=== PATIENT | male | born 1950 | race Caucasian/White ===

== ENCOUNTER 2021-04-21 21:47 | Inpatient (IN) | payer OTHER ==
[~2021-04-21] VITALS: Ht 180.3 cm; Wt 87.6 kg
[2021-04-21 23:12] LABS: BASOPHIL 0.2 % (0-2); EOSINOPHIL 1.3 % (0-7); HCT 36.6 % (42.0-52.0); LYMPHOCYTE 13.5 % (15-48); MCH 31.2 pg (25.0-31.0); MCHC 35.5 g/dL (32.0-36.0); MCV 87.8 fL (78.0-100.0); MONOCYTE 7.3 % (0-12); MPV 9.3 fL (6.0-9.5); NRBC 0; PLT 124 K/uL (150-400); RBC 4.17 M/uL (4.70-6.00); RDW 12.1 % (11.5-14.0); WBC 5.2 K/uL (4.0-10.5)
[2021-04-21 23:26] LABS: ALBUMIN 4.3 g/dL (3.4-5.0); BILIRUBIN - TOTAL 1.1 mg/dL (0.2-1.0); BUN/CREAT RATIO (CALC) 27.2 RATIO; CREATININE 0.81 mg/dL (0.67-1.17); POTASSIUM 3.8 mmol/L (3.5-5.1); TOTAL PROTEIN 7.3 g/dL (6.4-8.2); URIC ACID 4.3 mg/dL (3.5-7.2)
[2021-04-22 01:57] LABS: LACTIC ACID 2.5 mmol/L (0.4-1.9)
[2021-04-22 02:20] LABS: BILIRUBIN NEGATIVE (NEGATIVE); BLOOD TRACE-INTACT Ery/uL (NEGATIVE); CLARITY CLEAR (CLEAR); COLOR YELLOW (YELLOW); GLUCOSE (U) 2+ mg/dL (NORMAL); LEUKOCYTES NEGATIVE Leu/uL (NEGATIVE); NITRITE NEGATIVE (NEGATIVE); PROTEIN TRACE (LOW) mg/dL (NEGATIVE); SPECIFIC GRAVITY 1.025 (1.001-1.030); UROBILINOGEN 0.2 mg/dL (0.2-1.0); pH 5.5 (5.0-9.0)
[2021-04-22 02:24] LABS: AMPHETAMINES NEGATIVE (NEGATIVE); BARBITURATES NEGATIVE (NEGATIVE); ECSTASY (MDMA) NEGATIVE (NEGATIVE); MARIJUANA (THC) NEGATIVE (NEGATIVE); METHADONE NEGATIVE (NEGATIVE); OPIATES POSITIVE (NEGATIVE); OXYCODONE NEGATIVE (NEGATIVE)
[2021-04-22 02:26] LABS: BACTERIA TRACE; MUCOUS TRACE; TRANSITIONAL EPITHELIAL CELLS RARE
[2021-04-22 03:59] LABS: CORONAVIRUS 2019 SARS-COV-2 NEGATIVE (NEGATIVE); INFLUENZA A NAA NEGATIVE (NEGATIVE)
[2021-04-22] MEDS ORDERED: ACETAMINOPHEN325 MG PO (14:21)
[2021-04-22] MEDS ORDERED: LIPITOR40 MG PO (14:22)
[2021-04-22] MEDS ORDERED: NORVASC5 MG PO (14:22)
[2021-04-22] MEDS ORDERED: BICALUTAMIDE50 MG PO (14:23)
[2021-04-22] MEDS ORDERED: CELEBREX **OUT100 MG PO (14:24)
[2021-04-22] MEDS ORDERED: NEURONTIN300 M1 PO (14:27)
[2021-04-22] MEDS ORDERED: LISINOPRIL40 MG PO (14:29)
[2021-04-22] MEDS ORDERED: LOPRESSOR50 MG PO (14:30)
[2021-04-22] MEDS ORDERED: METFORMIN HCL500 MG PO (14:30)
[2021-04-22] MEDS ORDERED: PROTONIX 40MG T40 MG PO (14:31)
[2021-04-22] MEDS ORDERED: XARELTO10 MG PO (14:32)
[2021-04-22] MEDS ORDERED: LEVEMIR DO100 UNITS/ SC (14:37)
[2021-04-22] MEDS ORDERED: TRULICITY1.5 MG/0.5 SC (14:39)
--- NOTE | 2021-04-22 15:08 | NUR ---
04/22/21 Mr. Linn lives with his spouse and son. He does not use any DME and was independent in the home and community prior to admission.
[2021-04-23 16:51] LABS: HCT 33.3 % (42.0-52.0); HGB 11.5 g/dl (13.2-18.0); MCH 31.2 pg (25.0-31.0); MCHC 34.5 g/dL (32.0-36.0); MCV 90.2 fL (78.0-100.0); MPV 9.6 fL (6.0-9.5); RBC 3.69 M/uL (4.70-6.00); RDW 12.4 % (11.5-14.0)
[2021-04-23 16:52] LABS: WBC 16.4 K/uL (4.0-10.5)
--- NOTE | 2021-04-23 16:59 | NUR ---
NOTIFIED OF ELEVATED WBC
[2021-04-23 17:03] LABS: CREATININE 0.87 mg/dL (0.67-1.17)
[2021-04-23 17:04] LABS: POTASSIUM 3.6 mmol/L (3.5-5.1)
--- NOTE | 2021-04-23 20:57 | NUR ---
RN WAS TRYING TO RUN VANC 1250 MG 250 ML AT 250 ML/HR AND IV MACHAINE SAID I HAD TO OVERRIDE OVER 167 ML/HR AND WOULD ONLY GO UP TO 200 ML/HR. THE NURSE CALLED PHARMACY TO CONFIRM THE ML/HR AND THE PHARMASIST SAID IT WAS CORRECT AND COULD BE RAN OVER AN HOUR EVEN THOUGH OUR SYSTEM WOULDN'T ALLOW IT
--- NOTE | 2021-04-24 14:05 | NUR ---
PATIENT'S CAN TO DESK TO LET US KNOW THAT HE HAD NOT BEEN CLEANED UP SINCE SUNDAY ANE HE NEEDED TO BE. WENT TO THE ROOM, DAUGHTER AND PATIENT WERE IN THE ROOM, ASKED PATIENT IF HE WAS READY TO TAKE A SHOWER. HE STATED,"NO, I LIKE TO BE DIRTY." I THOUGHT HE WAS JOKING BUT HE STATED THAT HE WOULD THINK ABOUT IT FOR LATER BUT DID NOT WANT ONE. I INFORMED HIM THAT HIS HAD STATED THAT HE NEEDED TO GET CLEANED UP AND WHEN AND IF HE WAS READY TO LET US KNOW. I WAS INFORMED THAT EDWARD MONTERROSO ON NIGHT TRIED TO GET HIM TO GET A SHOWER LAST NIGHT AND HE REFUSED.
[2021-04-25 07:26] LABS: BASOPHIL 0.3 % (0-2); EOSINOPHIL 0.8 % (0-7); HCT 33.4 % (42.0-52.0); HGB 11.9 g/dl (13.2-18.0); LYMPHOCYTE 11.3 % (15-48); MCH 31.2 pg (25.0-31.0); MCHC 35.6 g/dL (32.0-36.0); MCV 87.4 fL (78.0-100.0); MONOCYTE 8.5 % (0-12); MPV 9.5 fL (6.0-9.5); NEUTROPHIL 76.4 % (41-80); NRBC 0; PLT 112 K/uL (150-400); RBC 3.82 M/uL (4.70-6.00); RDW 11.9 % (11.5-14.0); WBC 12.5 K/uL (4.0-10.5)
[2021-04-25 07:52] LABS: CREATININE 1.06 mg/dL (0.67-1.17); POTASSIUM 3.1 mmol/L (3.5-5.1)
[2021-04-26 06:11] LABS: BASOPHIL 0.2 % (0-2); EOSINOPHIL 2.5 % (0-7); HCT 33.5 % (42.0-52.0); HGB 11.9 g/dl (13.2-18.0); LYMPHOCYTE 14.5 % (15-48); MCH 31.2 pg (25.0-31.0); MCHC 35.5 g/dL (32.0-36.0); MCV 87.9 fL (78.0-100.0); MONOCYTE 13.9 % (0-12); MPV 9.5 fL (6.0-9.5); NRBC 0; PLT 132 K/uL (150-400); RBC 3.81 M/uL (4.70-6.00); RDW 12.2 % (11.5-14.0); WBC 5.1 K/uL (4.0-10.5)
[2021-04-26 06:52] LABS: CREATININE 1.46 mg/dL (0.67-1.17); POTASSIUM 3.3 mmol/L (3.5-5.1)
[2021-04-27 06:18] LABS: BASOPHIL 0.5 % (0-2); HCT 34.4 % (42.0-52.0); HGB 12.1 g/dl (13.2-18.0); LYMPHOCYTE 20.4 % (15-48); MCH 31.3 pg (25.0-31.0); MCHC 35.2 g/dL (32.0-36.0); MCV 88.9 fL (78.0-100.0); MONOCYTE 14.2 % (0-12); MPV 9.3 fL (6.0-9.5); NEUTROPHIL 55.7 % (41-80); NRBC 0; PLT 145 K/uL (150-400); RBC 3.87 M/uL (4.70-6.00); RDW 12.3 % (11.5-14.0)
[2021-04-27 07:00] LABS: CREATININE 1.51 mg/dL (0.67-1.17); POTASSIUM 3.3 mmol/L (3.5-5.1)
[2021-04-27 07:03] LABS: MAGNESIUM 1.9 mg/dL (1.8-2.4)
--- NOTE | 2021-04-27 12:45 | NUR ---
1230 MIDLINE ORDERED FOR PT FOR IV ANTIBIOTICS,PROCEDURE EXPLAINED TO PT. PT AGREED TP PROCEDURE. RISKS AND BENEFITS EXPLAINED ALSO. PT PREPPED AND DRAPED IN STERILE FASHION, THE PT'S LEFT UPPER ARM BASILIC VEIN WAS VIAUALIZED USING THE [employer] 6 US MACHINE. A 21 GAUGE GUIDE NEEDLE WAS USED. GOOD BLOOD RETURN WAS NOTED. THE GUIDE WIRE THREADED EASILY. THE NEEDLE WAS REMOVED AND THE MIDLINE CATHETER WAS PLACED OVER THE WIRE. THE WIRE AND SHEATH WERE REMOVED. GOOD BLOOD RETURN WAS NOTED. A CONNECTOR WAS FLUSHED AND PLACED ON THE END OF THE CATHETER. A STAT LOCK WAS PLACED ON THE CATHETER AND A BIOPATCH WAS PLACED ON TOP OF THE INSERTION SITE. A STERILE TEGADERM WAS PLACED OVER THE MIDLINE CATHETER. PT TOLERATED THE PROCEDURE WELL. PT HAS 20 G 10 CM POWERGLIDE MIDLINE CATHETER. GOOD FOR 29 DAYS. THIS IS NOT A CENTRAL LINE. REPORT WAS GIVEN TO GRACIE VINSON R.N. ON MED/SURG THE PATIENT'S BED WAS LOWERED TO THE GROUND AND THE CALL LIGHT IS WITHIN REACH OF THE PT, SIDE RAILS UP X 2.
--- NOTE | 2021-04-27 17:29 | NUR ---
MET WITH PT AND SPOUSE. PT IS A VETAERN. DR. RAWLS EXPLAINED TO PT. THAT HE WOULD HAVE CHANGE HIS IV ABX FROM VANC TO ZYVOX. IF HIS RENAL FUNCTION IMPROVED HE COULD HOME TOMORROW ON ORAL ZYVOX. IN DISCUSSING THE INFORMATION WITH THE PT. REGARDING HIS PRECRIPTION HE STATED THAT HE WOULD HAVE TO GO TO THE [facility] TO BANKING AND FINANCE INSTRUCTOR HIS PRESCRIPTION. TC TO [facility]. ADVISED THAT I WOULD HAVE TO SPEAK WITH GENERAL ACCOUNTANT. MIRZA VALENTIN. SPOKE WITH YUMIKO. SHE ADVISED THAT I WOULD HAVE TO GET AUTHORIZATION FROM PRIMARY CARE PHYSCIAN, DR. PÉREZ IN [facility]. I WOULD HAVE TO FAX CLINICAL INFORMATION TO [phone]. ONCE APPROVED PT. COULD BANKING AND FINANCE INSTRUCTOR THE MEDS AT THE PHARMACY. ADVISED DR. RAWLS AND HE INCLUDED IN PROGRESS NOTE WHY PT. WOULD NEED AN ABX OTHER THAN VANC. FAXED CLINICAL INFO TO DR. PÉREZ FOR AUTHORIZATION FOR MEDICATION.
[2021-04-28 05:51] LABS: BASOPHIL 0.4 % (0-2); EOSINOPHIL 1.7 % (0-7); HCT 32.3 % (42.0-52.0); HGB 11.5 g/dl (13.2-18.0); LYMPHOCYTE 20.4 % (15-48); MCH 31.6 pg (25.0-31.0); MCHC 35.6 g/dL (32.0-36.0); MCV 88.7 fL (78.0-100.0); MONOCYTE 8.7 % (0-12); MPV 9.2 fL (6.0-9.5); NEUTROPHIL 59.9 % (41-80); NRBC 0; PLT 145 K/uL (150-400); RBC 3.64 M/uL (4.70-6.00); RDW 12.1 % (11.5-14.0); WBC 4.8 K/uL (4.0-10.5)
[2021-04-28 06:37] LABS: CREATININE 1.48 mg/dL (0.67-1.17); POTASSIUM 3.8 mmol/L (3.5-5.1)
[2021-04-28 06:38] LABS: MAGNESIUM 1.7 mg/dL (1.8-2.4)
--- NOTE | 2021-04-28 14:44 | NUR ---
TC TO DR. PÉREZ OFFICE SPOKE WITH [employer]. SHE ADVISED THAT THE CONSULT HAS BEEN PUT IN FOR THE REFERRAL. SHE STATED THAT THE DRGagan WOULD NEED THE D/C SUMMARY BEFORE APPROVING THE MEDICATION AT THE [facility]. ADVISED DR. RAWLS THAT I WOULD NEED THE D/C SUMMARY TO SEND TO THE DOCTOR.
--- NOTE | 2021-04-28 14:52 | NUR ---
JOSEFINA FROM [facility] WITH OR. HE ADVISED THAT THE MEDICATION WOULD BE FILLED ONCE THE D/C SUMMARY IS RECEIVED. HE ALSO ADVISED THAT PT. HAS AN APPT. WITH HIS PRIMARY CARE PHYSICIAN AT [facility] FOR April @ 11:30 P.M. ADVISED RAGHAVENDRA HAWK.
[2021-04-28] MEDS ORDERED: ZYVOX600 MG PO (15:16)
--- NOTE | 2021-04-28 15:55 | NUR ---
JOSEFINA CALDERON THE OUTREACH STATISTICAL CLERK. SHE ADVISED THAT DR. PÉREZ HAD WRITTEN AN ORDER FOR THE PT. TO BE SEEN BY ON MONDAY, MAY 03, 2021. I ADVISED HER THAT DR. RAWLS WANTED HIM SEEN ON SUNDAY. YUMIKO TOLD ME THAT UNLESS DR. RAWLS WANTED TO SIGN THE ORDERS SHE WOULD HAVE TO GO WITH DR. PÉREZ'S ORDER. I ADVISED DR. RAWLS OF THIS INFORMATION. DR. RAWLS STATED THAT HE HAD DOCUMENTED IN HIS DC/ SUMMARY WHAT HE WANTED DONE.
== END 2021-04-28 18:27 | disposition home health service (06) | DRG 872 ==
LOC: FER 21:47 → FMS 04-22 04:37
PROVIDERS: Emergency Medicine; Internal Medicine; Nurse Practitioner; ADMIT Internal Medicine
PROC: 05HY33Z Insertion of Infusion Device into Upper Vein, Percutaneous Approach (ICD-10-PCS; principal; 2021-04-27)
DX: A41.9 Sepsis, unspecified organism (principal); L03.114 Cellulitis of left upper limb; N17.9 Acute kidney failure, unspecified; R65.20 Severe sepsis without septic shock; I10 Essential (primary) hypertension; Z20.822 Contact with and (suspected) exposure to COVID-19; E11.40 Type 2 diabetes mellitus with diabetic neuropathy, unspecified; T36.8X5A Adverse effect of other systemic antibiotics, initial encounter; K59.00 Constipation, unspecified; H40.9 Unspecified glaucoma; Z86.718 Personal history of other venous thrombosis and embolism; Z79.01 Long term (current) use of anticoagulants; Z85.46 Personal history of malignant neoplasm of prostate; Z95.820 Peripheral vascular angioplasty status with implants and grafts; Z90.79 Acquired absence of other genital organ(s); Z88.8 Allergy status to other drugs, medicaments and biological substances
CPT/HCPCS: 36415; 73201; 80048; 80053; 80202; 80305; 81001; 82962; 83036; 83605; 83735; 84145; 84550; 85025; 85379; 86140; 87040; 87070; 87075; 87077; 87186; 87205; C1751; G0378; J1642; J2020; J2270; J2405; J2543; J2550; J3370; J7030; J7050; J7120; Q9967; U0002

== ENCOUNTER 2021-11-18 12:41 | Emergency (ER) | payer MEDICARE ==
[~2021-11-18 12:41] MED LIST: ACETAMINOPHEN325 MG PO; BICALUTAMIDE50 MG PO; CELEBREX **OUT100 MG PO; LEVEMIR DO100 UNITS/ SC; LIPITOR40 MG PO; LISINOPRIL40 MG PO; LOPRESSOR50 MG PO; METFORMIN HCL500 MG PO; NEURONTIN300 M1 PO; NORVASC5 MG PO; PROTONIX 40MG T40 MG PO; TRULICITY1.5 MG/0.5 SC; XARELTO10 MG PO; ZYVOX600 MG PO
[2021-11-18] MEDS ORDERED: TESSALON PERLE100 MG PO (15:21)
[2021-11-18] MEDS ORDERED: VENTOLIN HFA IN18 GM INH (15:21)
== END 2021-11-18 15:35 | disposition home or self-care (01) ==
LOC: FER 12:41
DX: U07.1 COVID-19 (principal); I10 Essential (primary) hypertension; E11.9 Type 2 diabetes mellitus without complications; Z88.8 Allergy status to other drugs, medicaments and biological substances
CPT/HCPCS: 71045

== ENCOUNTER 2021-11-21 15:40 | Inpatient (IN) | payer MEDICARE ==
[~2021-11-21] VITALS: Ht 177.8 cm; Wt 75.8 kg
[~2021-11-21 15:40] MED LIST changes: +TESSALON PERLE100 MG PO; +VENTOLIN HFA IN18 GM INH
[2021-11-21 16:29] LABS: BASOPHIL 0.2 % (0-2); EOSINOPHIL 0 % (0-7); HCT 38.2 % (42.0-52.0); HGB 13.6 g/dl (13.2-18.0); LYMPHOCYTE 10.8 % (15-48); MCH 31.5 pg (25.0-31.0); MCHC 35.6 g/dL (32.0-36.0); MCV 88.4 fL (78.0-100.0); MONOCYTE 9.3 % (0-12); MPV 10.2 fL (6.0-9.5); NEUTROPHIL 75.6 % (41-80); NRBC 0; PLT 108 K/uL (150-400); RBC 4.32 M/uL (4.70-6.00); RDW 11.5 % (11.5-14.0); WBC 5.2 K/uL (4.0-10.5)
[2021-11-21 16:40] LABS: INR 1.13 (0.9-1.2); PROTHROMBIN TIME 13.9 SECONDS (11.8-13.4); PTT 27.3 SECONDS (24.4-34.7)
[2021-11-21 16:41] LABS: D-DIMER 0.44 ug/mLFEU (0.00-0.41)
[2021-11-21 16:57] LABS: LACTIC ACID 1.5 mmol/L (0.4-1.9)
[2021-11-21 17:08] LABS: BILIRUBIN - TOTAL 0.9 mg/dL (0.2-1.0); BUN/CREAT RATIO (CALC) 25.3 RATIO; C-REACTIVE PROTEIN 3.6 mg/dL (<=0.90); CREATININE 0.91 mg/dL (0.67-1.17); GLOBULIN (CALCULATION) 3.3 g/dL; MAGNESIUM 1.9 mg/dL (1.8-2.4); POTASSIUM 3.4 mmol/L (3.5-5.1); TOTAL PROTEIN 7.3 g/dL (6.4-8.2)
[2021-11-21 17:19] LABS: INFLUENZA A NAA NEGATIVE (NEGATIVE)
[2021-11-21 17:22] LABS: CORONAVIRUS 2019 SARS-COV-2 POSITIVE (NEGATIVE)
[2021-11-22 07:27] LABS: BASOPHIL 0.2 % (0-2); EOSINOPHIL 0 % (0-7); HCT 39.3 % (42.0-52.0); HGB 13.6 g/dl (13.2-18.0); LYMPHOCYTE 8.3 % (15-48); MCH 30.8 pg (25.0-31.0); MCHC 34.6 g/dL (32.0-36.0); MCV 89.1 fL (78.0-100.0); MONOCYTE 6.7 % (0-12); MPV 10.7 fL (6.0-9.5); NEUTROPHIL 81.5 % (41-80); NRBC 0; PLT 114 K/uL (150-400); RBC 4.41 M/uL (4.70-6.00); RDW 11.8 % (11.5-14.0)
[2021-11-22 07:35] LABS: WBC 12.3 K/uL (4.0-10.5)
[2021-11-22 07:56] LABS: ALBUMIN 3.7 g/dL (3.4-5.0); BILIRUBIN - DIRECT 0.2 mg/dL (0.00-0.20); BILIRUBIN - TOTAL 0.8 mg/dL (0.2-1.0); BUN/CREAT RATIO (CALC) 29.9 RATIO; CREATININE 0.87 mg/dL (0.67-1.17); GLOBULIN (CALCULATION) 3.4 g/dL; POTASSIUM 3.4 mmol/L (3.5-5.1); TOTAL PROTEIN 7.1 g/dL (6.4-8.2)
[2021-11-22 11:28] LABS: BILIRUBIN NEGATIVE (NEGATIVE); BLOOD 1+ Ery/uL (NEGATIVE); CLARITY CLEAR (CLEAR); COLOR YELLOW (YELLOW); GLUCOSE (U) 2+ mg/dL (NORMAL); LEUKOCYTES NEGATIVE Leu/uL (NEGATIVE); NITRITE NEGATIVE (NEGATIVE); PROTEIN 2+ mg/dL (NEGATIVE); SPECIFIC GRAVITY 1.025 (1.001-1.030); UROBILINOGEN 0.2 mg/dL (0.2-1.0)
[2021-11-22 11:45] LABS: BACTERIA TRACE; URINARY RBC RARE; URINARY WBC RARE
--- NOTE | 2021-11-23 04:50 | NUR ---
PT C/O COUGH, REQUESTING SUGAR FREE TUSSIN IS DMII & SUGARS HAVE BEEN VERY HIGH. DR. MARCELINO OK'D SF TUSSIN VIA VERBAL ORDER; HOWEVER, UNABLE TO FIND IN SYSTEM. IS THIS SOMETHING WE CAN OBTAIN IF PT STAYING ANY LONGER? PT MAY GO HOME TOMORROW BUT IF STAYS PLEASE CONSIDER OBTAIING OR ADVISE FAM TO HAVE IT BROUGHT IN TO SOOTH PT'S COUGH. THANK YOU.
== END 2021-11-23 16:54 | disposition home health service (06) | DRG 177 ==
LOC: FER 15:40 → FMS 20:16
PROVIDERS: Emergency Medicine; ADMIT Family Medicine
PROC: XW033E5 Introduction of Remdesivir Anti-infective into Peripheral Vein, Percutaneous Approach, New Technology Group 5 (ICD-10-PCS; principal; 2021-11-21)
PROC: 8E0ZXY6 Isolation (ICD-10-PCS; 2021-11-21)
DX: U07.1 COVID-19 (principal); J12.82 Pneumonia due to coronavirus disease 2019; E11.65 Type 2 diabetes mellitus with hyperglycemia; R09.02 Hypoxemia; I10 Essential (primary) hypertension; E11.319 Type 2 diabetes mellitus with unspecified diabetic retinopathy without macular edema; E78.5 Hyperlipidemia, unspecified; D69.6 Thrombocytopenia, unspecified; R74.01 Elevation of levels of liver transaminase levels; H40.9 Unspecified glaucoma; T38.0X5A Adverse effect of glucocorticoids and synthetic analogues, initial encounter; Z86.711 Personal history of pulmonary embolism; Z85.46 Personal history of malignant neoplasm of prostate; Z86.718 Personal history of other venous thrombosis and embolism; Z79.4 Long term (current) use of insulin; Z79.899 Other long term (current) drug therapy; Z85.828 Personal history of other malignant neoplasm of skin; Z88.8 Allergy status to other drugs, medicaments and biological substances
CPT/HCPCS: 36415; 36600; 71275; 80048; 80053; 80076; 81001; 82728; 82803; 83036; 83605; 83615; 83735; 83880; 84145; 84484; 85025; 85379; 85610; 85730; 86140; 87040; 87088; 93005; 94010; 97162; 97165; 97530-GP; 97535; C9399; J1100; J1815; J7030; J7050; J8540; Q9967; U0002

== ENCOUNTER 2021-12-22 10:13 | Emergency (ER) | payer MEDICARE ==
[2021-12-22 11:29] LABS: BASOPHIL 0.7 % (0-2); EOSINOPHIL 3.3 % (0-7); HCT 27.8 % (42.0-52.0); HGB 9.4 g/dl (13.2-18.0); LYMPHOCYTE 21.1 % (15-48); MCH 30.6 pg (25.0-31.0); MCHC 33.8 g/dL (32.0-36.0); MCV 90.6 fL (78.0-100.0); MONOCYTE 9.7 % (0-12); MPV 9.4 fL (6.0-9.5); NEUTROPHIL 61.2 % (41-80); NRBC 0; PLT 161 K/uL (150-400); RBC 3.07 M/uL (4.70-6.00); RDW 11.9 % (11.5-14.0); WBC 4.6 K/uL (4.0-10.5)
[2021-12-22 11:51] LABS: ALBUMIN 3.2 g/dL (3.4-5.0); BILIRUBIN - TOTAL 0.5 mg/dL (0.2-1.0); BUN/CREAT RATIO (CALC) 12.5 RATIO; CREATININE 1.6 mg/dL (0.67-1.17); POTASSIUM 3.3 mmol/L (3.5-5.1); TOTAL PROTEIN 6.2 g/dL (6.4-8.2)
[2021-12-22 17:38] LABS: RBC (FLUID) 11000 RBC/uL; WBC (FLUID) 137 WBC/uL
[2021-12-22 17:39] LABS: CLARITY (FLUID) CLOUDY; COLOR (FLUID) AMBER
[2021-12-23 09:09] LABS: BASOPHIL 0.5 % (0-2); EOSINOPHIL 3.6 % (0-7); HCT 30.1 % (42.0-52.0); HGB 10.4 g/dl (13.2-18.0); LYMPHOCYTE 18.4 % (15-48); MCH 30.5 pg (25.0-31.0); MCHC 34.6 g/dL (32.0-36.0); MCV 88.3 fL (78.0-100.0); MONOCYTE 10.2 % (0-12); NEUTROPHIL 63.5 % (41-80); NRBC 0; PLT 168 K/uL (150-400); RBC 3.41 M/uL (4.70-6.00); RDW 11.9 % (11.5-14.0); WBC 3.9 K/uL (4.0-10.5)
[2021-12-23 09:37] LABS: BUN/CREAT RATIO (CALC) 11.9 RATIO; CREATININE 1.51 mg/dL (0.67-1.17)
[2021-12-24 08:07] LABS: BASOPHIL 0.7 % (0-2); EOSINOPHIL 3.8 % (0-7); HGB 9.4 g/dl (13.2-18.0); LYMPHOCYTE 19.9 % (15-48); MCH 30.8 pg (25.0-31.0); MCHC 34.8 g/dL (32.0-36.0); MCV 88.5 fL (78.0-100.0); MONOCYTE 10.9 % (0-12); MPV 9.5 fL (6.0-9.5); NEUTROPHIL 62.8 % (41-80); NRBC 0; PLT 160 K/uL (150-400); RBC 3.05 M/uL (4.70-6.00); RDW 12.1 % (11.5-14.0); WBC 4.2 K/uL (4.0-10.5)
[2021-12-24 08:18] LABS: BUN/CREAT RATIO (CALC) 10.5 RATIO; CREATININE 1.52 mg/dL (0.67-1.17)
[2021-12-26 00:20] LABS: HCT 26.1 % (42.0-52.0); HGB 9.2 g/dl (13.2-18.0); MCH 31.1 pg (25.0-31.0); MCHC 35.2 g/dL (32.0-36.0); MCV 88.2 fL (78.0-100.0); MPV 9.3 fL (6.0-9.5); RBC 2.96 M/uL (4.70-6.00); WBC 4.5 K/uL (4.0-10.5)
[2021-12-26 00:42] LABS: BUN/CREAT RATIO (CALC) 8.5 RATIO; CREATININE 1.76 mg/dL (0.67-1.17); MAGNESIUM 1.1 mg/dL (1.8-2.4); PHOSPHORUS 3.3 mg/dL (2.6-4.7); POTASSIUM 3.2 mmol/L (3.5-5.1)
== END 2021-12-26 14:32 | disposition other institution (70) ==
LOC: FER 10:13
PROVIDERS: Emergency Medicine; Emergency Medicine Emergency Medical Services
DX: J90 Pleural effusion, not elsewhere classified (principal); I10 Essential (primary) hypertension; I25.10 Atherosclerotic heart disease of native coronary artery without angina pectoris; Z86.718 Personal history of other venous thrombosis and embolism; Z88.8 Allergy status to other drugs, medicaments and biological substances; Z20.822 Contact with and (suspected) exposure to COVID-19
CPT/HCPCS: 36415; 71045; 71046; 71250; 80048; 80053; 82945; 83605; 83735; 83986; 84100; 84157; 85025; 87040; 87070; 89051; J2543; J3480; J7050; U0002

== ENCOUNTER 2022-01-13 16:29 | Inpatient (IN) | payer MEDICARE ==
[~2022-01-13] VITALS: Ht 177.8 cm; Wt 74.1 kg
[2022-01-13 16:56] LABS: BASOPHIL 0.4 % (0-2); EOSINOPHIL 2.2 % (0-7); HCT 24.5 % (42.0-52.0); HGB 8.5 g/dl (13.2-18.0); LYMPHOCYTE 18.7 % (15-48); MCH 30.5 pg (25.0-31.0); MCHC 34.7 g/dL (32.0-36.0); MCV 87.8 fL (78.0-100.0); MONOCYTE 10.8 % (0-12); MPV 9.4 fL (6.0-9.5); NEUTROPHIL 64.3 % (41-80); NRBC 0; PLT 175 K/uL (150-400); RBC 2.79 M/uL (4.70-6.00)
[2022-01-13 17:08] LABS: INR 1.64 (0.9-1.2); PROTHROMBIN TIME 18.7 SECONDS (11.8-13.4)
[2022-01-13 17:18] LABS: ALBUMIN 2.6 g/dL (3.4-5.0); BILIRUBIN - TOTAL 0.4 mg/dL (0.2-1.0); BUN/CREAT RATIO (CALC) 12.6 RATIO; CREATININE 1.51 mg/dL (0.67-1.17); GLOBULIN (CALCULATION) 3.6 g/dL; POTASSIUM 2.9 mmol/L (3.5-5.1); TOTAL PROTEIN 6.2 g/dL (6.4-8.2)
[2022-01-13] MEDS ORDERED: DECADRON4 MG PO (20:49)
[2022-01-13] MEDS ORDERED: COLACE100 MG PO (20:49)
[2022-01-13] MEDS ORDERED: LEVEMIR VI100 UNITS/ SC/PO (20:50)
[2022-01-13] MEDS ORDERED: OSTERA TABLET1 EACH PO (20:51)
[2022-01-13] MEDS ORDERED: ASPIRIN EC81 MG PO (20:52)
[2022-01-13] MEDS ORDERED: XARELTO10 MG PO (20:52)
[2022-01-13] MEDS ORDERED: PRAVASTATIN SOD40 MG PO (20:54)
[2022-01-13] MEDS ORDERED: PERCOCET 7.5/321 TAB PO (20:55)
[2022-01-13] MEDS ORDERED: NOVOLOG VI100 UNIT/1 SC (20:55)
[2022-01-13] MEDS ORDERED: LOVAZA1 GM PO (20:55)
[2022-01-13 22:11] LABS: MAGNESIUM 1.2 mg/dL (1.8-2.4); POTASSIUM 3.4 mmol/L (3.5-5.1)
[2022-01-14 01:41] LABS: BILIRUBIN NEGATIVE (NEGATIVE); BLOOD TRACE-INTACT Ery/uL (NEGATIVE); CLARITY CLEAR (CLEAR); COLOR YELLOW (YELLOW); GLUCOSE (U) 3+ mg/dL (NORMAL); LEUKOCYTES NEGATIVE Leu/uL (NEGATIVE); NITRITE NEGATIVE (NEGATIVE); PROTEIN 1+ mg/dL (NEGATIVE); SPECIFIC GRAVITY 1.015 (1.001-1.030); UROBILINOGEN 0.2 mg/dL (0.2-1.0); pH 5.5 (5.0-9.0)
[2022-01-14 01:47] LABS: AMORPHOUS URATES CRYSTALS MODERATE; MUCOUS TRACE; SQUAMOUS EPITHELIAL CELLS RARE; URINARY RBC RARE
[2022-01-14 03:47] LABS: BASOPHIL 0.3 % (0-2); HCT 23.8 % (42.0-52.0); HGB 8.2 g/dl (13.2-18.0); MCH 30.3 pg (25.0-31.0); MCHC 34.5 g/dL (32.0-36.0); MCV 87.8 fL (78.0-100.0); MONOCYTE 9.9 % (0-12); MPV 9.1 fL (6.0-9.5); NRBC 0; PLT 178 K/uL (150-400); RBC 2.71 M/uL (4.70-6.00); RDW 12.1 % (11.5-14.0); WBC 7.1 K/uL (4.0-10.5)
[2022-01-14 04:08] LABS: IRON % SATURATION 18.1 %SAT (20-50)
[2022-01-14 04:33] LABS: BUN/CREAT RATIO (CALC) 12.7 RATIO; CREATININE 1.34 mg/dL (0.67-1.17); POTASSIUM 3.3 mmol/L (3.5-5.1)
[2022-01-14 04:35] LABS: MAGNESIUM 1.8 mg/dL (1.8-2.4)
[2022-01-15 03:48] LABS: BASOPHIL 0.5 % (0-2); EOSINOPHIL 3.5 % (0-7); HCT 26.2 % (42.0-52.0); HGB 8.8 g/dl (13.2-18.0); LYMPHOCYTE 18.1 % (15-48); MCH 29.9 pg (25.0-31.0); MCHC 33.6 g/dL (32.0-36.0); MCV 89.1 fL (78.0-100.0); MONOCYTE 9.9 % (0-12); MPV 8.9 fL (6.0-9.5); NRBC 0; PLT 202 K/uL (150-400); RBC 2.94 M/uL (4.70-6.00); RDW 12.3 % (11.5-14.0); WBC 6.6 K/uL (4.0-10.5)
[2022-01-15 03:57] LABS: NEUTROPHIL 59.5 % (41-80)
[2022-01-15 04:27] LABS: BUN/CREAT RATIO (CALC) 9.4 RATIO; CREATININE 1.06 mg/dL (0.67-1.17); POTASSIUM 3.8 mmol/L (3.5-5.1)
[2022-01-15] MEDS ORDERED: FOLIC ACID1 MG PO (10:27)
[2022-01-15] MEDS ORDERED: MAG-OXIDE 400M400 MG PO (10:27)
[2022-01-15] MEDS ORDERED: FEOSOL325 MG PO (10:28)
--- NOTE | 2022-01-16 10:35 | NUR ---
01/16/22 Mr. Linn lives at home with his spouse and a 42 y/o son. Ms. Linn is reported to have a dx of dementia. The son is reported to have an intellectual disabilty and to have a special education case manager. - Mr. Linn has a cane. Therapy notes did not recommend additional DME. He receives his PCP from Dr. Edmond at the [facility] on [facility]. Mr. Linn is working with [facility] for in-home services. - [facility] is current and were notified of discharge. [facility] was requested to include a social media strategist.
== END 2022-01-15 12:15 | disposition home or self-care (01) | DRG 682 ==
LOC: FER 16:29 → FTCU 19:05
PROVIDERS: Emergency Medicine; Family Medicine; Nurse Practitioner; ADMIT Internal Medicine
DX: N17.9 Acute kidney failure, unspecified (principal); J18.9 Pneumonia, unspecified organism; J90 Pleural effusion, not elsewhere classified; I95.2 Hypotension due to drugs; Z20.822 Contact with and (suspected) exposure to COVID-19; E87.6 Hypokalemia; I12.9 Hypertensive chronic kidney disease with stage 1 through stage 4 chronic kidney disease, or unspecified chronic kidney disease; N18.2 Chronic kidney disease, stage 2 (mild); E78.5 Hyperlipidemia, unspecified; E83.42 Hypomagnesemia; D50.9 Iron deficiency anemia, unspecified; E11.319 Type 2 diabetes mellitus with unspecified diabetic retinopathy without macular edema; R19.7 Diarrhea, unspecified; T46.5X5A Adverse effect of other antihypertensive drugs, initial encounter; Z85.46 Personal history of malignant neoplasm of prostate; Z85.828 Personal history of other malignant neoplasm of skin; Z86.718 Personal history of other venous thrombosis and embolism; Z86.16 Personal history of COVID-19; Z90.79 Acquired absence of other genital organ(s); Z88.8 Allergy status to other drugs, medicaments and biological substances; Z79.4 Long term (current) use of insulin; Z79.01 Long term (current) use of anticoagulants; Z79.82 Long term (current) use of aspirin; Z79.899 Other long term (current) drug therapy
CPT/HCPCS: 36415; 70450; 71045; 71250; 80048; 80053; 81001; 82270; 82607; 82746; 82962; 83540; 83550; 83735; 83880; 84132; 84145; 84443; 84466; 84484; 85025; 85610; 85730; 87088; 87449; 93005; 94762; 97165; J0878; J1335; J2916; J3475; J7030; J7040; U0002

== ENCOUNTER 2022-06-05 11:12 | Inpatient (IN) | payer MEDICARE ==
[~2022-06-05] VITALS: Ht 177.8 cm; Wt 79.5 kg
[~2022-06-05 11:12] MED LIST changes: +ASPIRIN EC81 MG PO; +COLACE100 MG PO; +DECADRON4 MG PO; +FEOSOL325 MG PO; +FOLIC ACID1 MG PO; +LEVEMIR VI100 UNITS/ SC/PO; +LOVAZA1 GM PO; +MAG-OXIDE 400M400 MG PO; +NOVOLOG VI100 UNIT/1 SC; +OSTERA TABLET1 EACH PO; +PERCOCET 7.5/321 TAB PO; +PRAVASTATIN SOD40 MG PO
[2022-06-05 12:24] LABS: BASOPHIL 0.3 % (0-2); EOSINOPHIL 4.9 % (0-7); HCT 28.7 % (42.0-52.0); HGB 9.3 g/dl (13.2-18.0); LYMPHOCYTE 21.2 % (15-48); MCH 30.3 pg (25.0-31.0); MCHC 32.4 g/dL (32.0-36.0); MCV 93.5 fL (78.0-100.0); MONOCYTE 6.3 % (0-12); MPV 9.5 fL (6.0-9.5); NEUTROPHIL 65.2 % (41-80); NRBC 0; PLT 206 K/uL (150-400); RBC 3.07 M/uL (4.70-6.00); RDW 12.7 % (11.5-14.0); WBC 8.6 K/uL (4.0-10.5)
[2022-06-05 12:45] LABS: ALBUMIN 2.8 g/dL (3.4-5.0); BILIRUBIN - TOTAL 0.7 mg/dL (0.2-1.0); BUN/CREAT RATIO (CALC) 34.5 RATIO; CREATININE 1.97 mg/dL (0.67-1.17); GLOBULIN (CALCULATION) 3.1 g/dL; POTASSIUM 5.5 mmol/L (3.5-5.1); TOTAL PROTEIN 5.9 g/dL (6.4-8.2)
[2022-06-05 12:52] LABS: CKMB 1.6 ng/mL (0.0-3.6)
[2022-06-05 12:58] LABS: PRO-BNP > 35000 pg/mL (<125)
[2022-06-05 14:00] LABS: BILIRUBIN NEGATIVE (NEGATIVE); BLOOD NEGATIVE Ery/uL (NEGATIVE); CLARITY CLEAR (CLEAR); COLOR YELLOW (YELLOW); GLUCOSE (U) TRACE mg/dL (NORMAL); LEUKOCYTES NEGATIVE Leu/uL (NEGATIVE); NITRITE NEGATIVE (NEGATIVE); PROTEIN NEGATIVE (NEGATIVE); SPECIFIC GRAVITY 1.025 (1.001-1.030); UROBILINOGEN 0.2 mg/dL (0.2-1.0); pH 5.5 (5.0-9.0)
[2022-06-05 16:09] LABS: BUN/CREAT RATIO (CALC) 33.9 RATIO; CREATININE 1.83 mg/dL (0.67-1.17); POTASSIUM 5.4 mmol/L (3.5-5.1)
[2022-06-05 22:30] LABS: BUN/CREAT RATIO (CALC) 35.4 RATIO; CREATININE 1.61 mg/dL (0.67-1.17); POTASSIUM 5.2 mmol/L (3.5-5.1)
[2022-06-06 06:25] LABS: HCT 25.2 % (42.0-52.0); HGB 8.3 g/dl (13.2-18.0); MCH 30.5 pg (25.0-31.0); MCHC 32.9 g/dL (32.0-36.0); MCV 92.6 fL (78.0-100.0); MPV 9.4 fL (6.0-9.5); RBC 2.72 M/uL (4.70-6.00); RDW 12.7 % (11.5-14.0); WBC 8.1 K/uL (4.0-10.5)
[2022-06-06 06:59] LABS: BUN/CREAT RATIO (CALC) 33.3 RATIO; CREATININE 1.53 mg/dL (0.67-1.17); POTASSIUM 4.9 mmol/L (3.5-5.1)
[2022-06-06] MEDS ORDERED: ALOGLIPTIN12.5 MG PO (14:49)
[2022-06-06] MEDS ORDERED: REMERON15 MG PO (14:50)
[2022-06-06] MEDS ORDERED: 8 HOUR650 MG PO (14:51)
[2022-06-06] MEDS ORDERED: AMILORIDE HCL5 MG PO (14:51)
[2022-06-06] MEDS ORDERED: COREG12.5 MG PO (14:51)
[2022-06-06] MEDS ORDERED: PERCOCET 5-3251 EACH PO (14:52)
[2022-06-06] MEDS ORDERED: 3IN1 COMMODE (14:52)
[2022-06-06 16:46] LABS: IRON % SATURATION 17.6 %SAT (20-50)
[2022-06-07 06:18] LABS: BASOPHIL 0.1 % (0-2); EOSINOPHIL 0.9 % (0-7); HCT 26.5 % (42.0-52.0); HGB 8.7 g/dl (13.2-18.0); LYMPHOCYTE 59.2 % (15-48); MCH 30.6 pg (25.0-31.0); MCHC 32.8 g/dL (32.0-36.0); MCV 93.3 fL (78.0-100.0); MONOCYTE 7.2 % (0-12); MPV 9.3 fL (6.0-9.5); NEUTROPHIL 30.4 % (41-80); NRBC 0; PLT 172 K/uL (150-400); RBC 2.84 M/uL (4.70-6.00); RDW 12.8 % (11.5-14.0)
[2022-06-07 06:28] LABS: WBC 8.1 K/uL (4.0-10.5)
[2022-06-07 06:43] LABS: BUN/CREAT RATIO (CALC) 30.8 RATIO; CREATININE 1.3 mg/dL (0.67-1.17); MAGNESIUM 1.6 mg/dL (1.8-2.4); POTASSIUM 4.3 mmol/L (3.5-5.1)
[2022-06-08 06:18] LABS: BASOPHIL 0.1 % (0-2); EOSINOPHIL 0.4 % (0-7); HCT 24.3 % (42.0-52.0); HGB 7.8 g/dl (13.2-18.0); LYMPHOCYTE 54.9 % (15-48); MCH 30.4 pg (25.0-31.0); MCHC 32.1 g/dL (32.0-36.0); MCV 94.6 fL (78.0-100.0); MONOCYTE 9.2 % (0-12); MPV 9.2 fL (6.0-9.5); NEUTROPHIL 34.2 % (41-80); NRBC 0; PLT 151 K/uL (150-400); RBC 2.57 M/uL (4.70-6.00); RDW 13.2 % (11.5-14.0); WBC 7.5 K/uL (4.0-10.5)
[2022-06-08 07:21] LABS: BUN/CREAT RATIO (CALC) 27.6 RATIO; C-REACTIVE PROTEIN 2.1 mg/dL (<=0.90); CREATININE 1.34 mg/dL (0.67-1.17); POTASSIUM 4.4 mmol/L (3.5-5.1)
[2022-06-09 06:16] LABS: BASOPHIL 0.2 % (0-2); EOSINOPHIL 2.8 % (0-7); HCT 29.7 % (42.0-52.0); HGB 9.5 g/dl (13.2-18.0); LYMPHOCYTE 39.3 % (15-48); MCH 30.9 pg (25.0-31.0); MCV 96.7 fL (78.0-100.0); MONOCYTE 9.3 % (0-12); MPV 9.7 fL (6.0-9.5); NRBC 0; PLT 137 K/uL (150-400); RBC 3.07 M/uL (4.70-6.00); WBC 5.7 K/uL (4.0-10.5)
[2022-06-09 06:54] LABS: ALBUMIN 2.4 g/dL (3.4-5.0); BILIRUBIN - TOTAL 0.4 mg/dL (0.2-1.0); BUN/CREAT RATIO (CALC) 23.8 RATIO; CREATININE 1.47 mg/dL (0.67-1.17); GLOBULIN (CALCULATION) 2.9 g/dL; MAGNESIUM 1.8 mg/dL (1.8-2.4); POTASSIUM 4.5 mmol/L (3.5-5.1); TOTAL PROTEIN 5.3 g/dL (6.4-8.2)
[2022-06-09 17:23] LABS: CHOLESTEROL 105 mg/dL (<200); HDL 23 mg/dL (40-60); LDL - DIRECT 44 mg/dL (<100); TRIGLYCERIDES 273 mg/dL (<150)
[2022-06-10 05:55] LABS: BASOPHIL 0.2 % (0-2); EOSINOPHIL 5.6 % (0-7); HGB 9.3 g/dl (13.2-18.0); MCH 30.9 pg (25.0-31.0); MCHC 32.1 g/dL (32.0-36.0); MCV 96.3 fL (78.0-100.0); MONOCYTE 7.8 % (0-12); MPV 9.2 fL (6.0-9.5); NEUTROPHIL 49.5 % (41-80); NRBC 0; PLT 135 K/uL (150-400); RBC 3.01 M/uL (4.70-6.00); RDW 13.8 % (11.5-14.0); WBC 5.4 K/uL (4.0-10.5)
[2022-06-10 06:06] LABS: INR 1.27 (0.9-1.2); PROTHROMBIN TIME 15.5 SECONDS (11.9-13.9); PTT 31.1 SECONDS (24.9-34.6)
[2022-06-10 06:18] LABS: BUN/CREAT RATIO (CALC) 21.5 RATIO; C-REACTIVE PROTEIN 1.8 mg/dL (<=0.90); CREATININE 1.63 mg/dL (0.67-1.17); MAGNESIUM 1.8 mg/dL (1.8-2.4); PHOSPHORUS 3.7 mg/dL (2.6-4.7); POTASSIUM 4.3 mmol/L (3.5-5.1)
[2022-06-11 06:46] LABS: BASOPHIL 0.4 % (0-2); EOSINOPHIL 6.9 % (0-7); HCT 28.4 % (42.0-52.0); HGB 9.3 g/dl (13.2-18.0); LYMPHOCYTE 32.5 % (15-48); MCH 30.9 pg (25.0-31.0); MCHC 32.7 g/dL (32.0-36.0); MCV 94.4 fL (78.0-100.0); MONOCYTE 7.1 % (0-12); MPV 9.6 fL (6.0-9.5); NEUTROPHIL 51.6 % (41-80); NRBC 0; PLT 130 K/uL (150-400); RBC 3.01 M/uL (4.70-6.00); RDW 13.8 % (11.5-14.0)
[2022-06-11 06:56] LABS: WBC 5.4 K/uL (4.0-10.5)
[2022-06-11 06:58] LABS: C-REACTIVE PROTEIN 1.5 mg/dL (<=0.90); CREATININE 1.43 mg/dL (0.67-1.17); POTASSIUM 4.3 mmol/L (3.5-5.1)
[2022-06-12 05:33] LABS: BASOPHIL 0 % (0-2); EOSINOPHIL 9.3 % (0-7); HCT 30.8 % (42.0-52.0); HGB 10.3 g/dl (13.2-18.0); LYMPHOCYTE 29.8 % (15-48); MCH 31.3 pg (25.0-31.0); MCHC 33.4 g/dL (32.0-36.0); MCV 93.6 fL (78.0-100.0); MONOCYTE 8.7 % (0-12); MPV 9.2 fL (6.0-9.5); NEUTROPHIL 50.9 % (41-80); NRBC 0; PLT 142 K/uL (150-400); RBC 3.29 M/uL (4.70-6.00); RDW 13.6 % (11.5-14.0); WBC 4.5 K/uL (4.0-10.5)
[2022-06-12 06:05] LABS: ALBUMIN 2.3 g/dL (3.4-5.0); BILIRUBIN - TOTAL 0.5 mg/dL (0.2-1.0); BUN/CREAT RATIO (CALC) 19.1 RATIO; C-REACTIVE PROTEIN 1.4 mg/dL (<=0.90); CREATININE 1.36 mg/dL (0.67-1.17); GLOBULIN (CALCULATION) 2.9 g/dL; MAGNESIUM 1.7 mg/dL (1.8-2.4); PHOSPHORUS 2.5 mg/dL (2.6-4.7); POTASSIUM 4.2 mmol/L (3.5-5.1); TOTAL PROTEIN 5.2 g/dL (6.4-8.2)
[2022-06-12 12:07] LABS: CALCIUM, SERUM 10.2 mg/dL (8.6-10.2); PTH, INTACT 4 pg/mL (15-65)
[2022-06-12 20:22] LABS: CLARITY (FLUID) CLEAR; COLOR (FLUID) COLORLESS; RBC (FLUID) 0 RBC/uL; WBC (FLUID) 0 WBC/uL
== END 2022-06-16 00:43 | disposition other institution (70) | DRG 871 ==
LOC: FER 11:12 → FTCU 16:24 → FMS 06-15 07:47
PROVIDERS: Emergency Medicine; Internal Medicine; ADMIT Family Medicine
PROC: 8E0ZXY6 Isolation (ICD-10-PCS; 2022-06-05)
PROC: B24BZZZ Ultrasonography of Heart with Aorta (ICD-10-PCS; 2022-06-06)
PROC: 3E03329 Introduction of Other Anti-infective into Peripheral Vein, Percutaneous Approach (ICD-10-PCS; 2022-06-07)
PROC: 30233N1 Transfusion of Nonautologous Red Blood Cells into Peripheral Vein, Percutaneous Approach (ICD-10-PCS; 2022-06-08)
PROC: 009U3ZZ Drainage of Spinal Canal, Percutaneous Approach (ICD-10-PCS; principal; 2022-06-12)
DX: A41.89 Other specified sepsis (principal); E43 Unspecified severe protein-calorie malnutrition; U07.1 COVID-19; G93.41 Metabolic encephalopathy; J12.82 Pneumonia due to coronavirus disease 2019; I21.A1 Myocardial infarction type 2; J15.9 Unspecified bacterial pneumonia; A04.72 Enterocolitis due to Clostridium difficile, not specified as recurrent; N17.9 Acute kidney failure, unspecified; R44.3 Hallucinations, unspecified; E87.1 Hypo-osmolality and hyponatremia; R65.20 Severe sepsis without septic shock; E83.52 Hypercalcemia; D50.9 Iron deficiency anemia, unspecified; E78.5 Hyperlipidemia, unspecified; I66.11 Occlusion and stenosis of right anterior cerebral artery; I66.01 Occlusion and stenosis of right middle cerebral artery; I66.29 Occlusion and stenosis of unspecified posterior cerebral artery; E86.0 Dehydration; I12.9 Hypertensive chronic kidney disease with stage 1 through stage 4 chronic kidney disease, or unspecified chronic kidney disease; E11.22 Type 2 diabetes mellitus with diabetic chronic kidney disease; N18.2 Chronic kidney disease, stage 2 (mild); R79.89 Other specified abnormal findings of blood chemistry; E87.5 Hyperkalemia; Z88.8 Allergy status to other drugs, medicaments and biological substances; Z85.46 Personal history of malignant neoplasm of prostate; Z85.830 Personal history of malignant neoplasm of bone; Z79.82 Long term (current) use of aspirin; Z79.899 Other long term (current) drug therapy; Z79.4 Long term (current) use of insulin; Z90.79 Acquired absence of other genital organ(s); Z83.3 Family history of diabetes mellitus; Z80.0 Family history of malignant neoplasm of digestive organs; Z92.3 Personal history of irradiation; Z86.16 Personal history of COVID-19; Z68.25 Body mass index [BMI] 25.0-25.9, adult
CPT/HCPCS: 36415; 36430; 36600; 70450; 70544; 70548; 70551; 71045; 71046; 80048; 80053; 80061; 81003; 82140; 82310; 82550; 82553; 82607; 82803; 82945; 82962; 83036; 83540; 83550; 83605; 83735; 83880; 83970; 84100; 84145; 84155; 84300; 84484; 85025; 85610; 85730; 86140; 86850; 86900; 86901; 86922; 87045; 87046; 87070; 87205; 87324; 87449; 87493; 87496; 87798; 89051; 92523; 93005; 94010; 97110; 97116; 97162; 97166; 97530; 97530-GP; 97535; A9579; J1650; J2405; J2543; J2916; J3475; J7030; J7050; P9016; U0002